=== PATIENT | male | born 1990 | race Two or more races ===

== ENCOUNTER 2018-06-08 11:07 | Emergency (ER) | payer SELFPAY ==
[~2018-06-08] VITALS: Ht 167.6 cm; Wt 69.1 kg
[2018-06-08 11:56] VITALS: BP 153/100
== END 2018-06-08 12:52 | disposition home or self-care (01) ==
LOC: ED 12:50
DX: K08.89 Other specified disorders of teeth and supporting structures (principal)
CPT/HCPCS: 99283